=== PATIENT | male | born 1975 | race American Indian/Alaskan Native ===

== ENCOUNTER 2017-01-25 08:59 | Emergency (ER) | payer SELFPAY ==
[2017-01-25 09:12] VITALS: BP 125/86
--- NOTE | 2017-02-01 10:26 | ED Elopement Review ---
ED Pt Elopement review - Call Back decision Pt Call Back Decision: No action required
== END 2017-01-25 19:40 | disposition left against medical advice (07) ==
LOC: ED 08:59
DX: R42 Dizziness and giddiness (principal); Z53.21 Procedure and treatment not carried out due to patient leaving prior to being seen by health care provider
CPT/HCPCS: 93005; 93010

== ENCOUNTER 2017-02-11 15:15 | Emergency (ER) | payer SELFPAY ==
[2017-02-11 15:39] VITALS: BP 136/87
--- NOTE | 2017-02-11 15:59 | Emergency Department Report ---
Entered by MICAELA FLORES, acting as scribe for MAURY TOBIN NP. Chief Complaint: Weakness Stated Complaint: CRAMPS/WEAKNESS Time Seen by Provider: 02/11/17 15:50 - HPI History of Present Illness: 42 y/o male presents to the ED c/o muscle cramps that began this morning. Associated symptoms include weakness. Denies fever and chills. Patient states he has been out walking in the heat today. No alleviating or aggravating symptoms. NKDA. - ROS Review of Systems: +muscle cramps +weakness -fever -chills - Exam Vital Signs: Vital Signs 02/11/17 15:35 Temperature 98.6 F Pulse Rate 95 H Respiratory 18 Rate Blood Pressure 136/87 O2 Sat by Pulse 99 Oximetry Physical Exam: pt looks well, non toxic. gcs 15 no focal weakness noted on exam MSE screening note: Focused history and physical exam performed. Due to findings the following was ordered: labs ED Disposition for MSE Condition: Stable This documentation as recorded by the scribe,MICAELA FLORES,accurately reflects the service I personally performed and the decisions made by ,MAURY TOBIN, SURINDER.
[2017-02-11 16:11] LABS: Basophils % (Auto) 0.7 % (0.0-1.8); Eosinophils % (Auto) 0.8 % (0.0-4.3); Hematocrit 43.1 % (35.5-45.6); Hemoglobin 14.1 gm/dl (11.8-15.2); Mean Corpuscular HGB Conc 33 % (32-34); Mean Corpuscular Hemoglobin 28 pg (28-32); Mean Corpuscular Volume 85 fl (84-94); Platelet Count 210 K/mm3 (140-440); Red Blood Count 5.09 M/mm3 (3.65-5.03); White Blood Count 4.7 K/mm3 (4.5-11.0)
[2017-02-11 16:13] LABS: Bilirubin,Urine NEG (Negative); Blood,Urine NEG (Negative); Ketones,Urine NEG (Negative); Leukocyte Esterase,Urine NEG (Negative); Mucus,Urine FEW /HPF; Nitrite,Urine NEG (Negative); Protein,Urine <15 mg/dL mg/dL (Negative); Urobilinogen,Urine < 2.0 mg/dL (<2.0); WBC,Urine < 1.0 /HPF (0.0-6.0)
[2017-02-11 16:31] LABS: Alanine Aminotransferase 37 units/L (7-56); Albumin 4.4 g/dL (3.9-5); Albumin/Globulin Ratio 1.5 %; Alkaline Phosphatase 60 units/L (35-129); Anion Gap 17 mmol/L; BUN/Creatinine Ratio 10.83; Blood Urea Nitrogen 13 mg/dL (9-20); Carbon Dioxide 26 mmol/L (22-30); Chloride 104.1 mmol/L (98-107); Creatine Kinase 583 units/L (55-170); Glucose 92 mg/dL (75-100); Potassium 3.9 mmol/L (3.6-5.0); Sodium 143 mmol/L (137-145); Total Protein 7.4 g/dL (6.3-8.2)
[2017-02-11] MEDS ORDERED: NACL 0.9% 1000 ML 1,000 ML IV ONE (16:51)
--- NOTE | 2017-02-17 13:19 | ED Elopement Review ---
ED Pt Elopement review - Results review Lab results: Laboratory Tests 02/11/17 02/11/17 02/11/17 15:54 15:54 15:54 WBC 4.7 RBC 5.09 H Hgb 14.1 Hct 43.1 MCV 85 MCH 28 MCHC 33 RDW 13.0 L Plt Count 210 Lymph % (Auto) 32.7 [place] % (Auto) 8.7 H Eos % (Auto) 0.8 Baso % (Auto) 0.7 Lymph # 1.5 [place] # 0.4 Eos # 0.0 Baso # 0.0 Seg Neutrophils % 57.1 Seg Neutrophils # 2.7 Sodium 143 Potassium 3.9 Chloride 104.1 Carbon Dioxide 26 Anion Gap 17 BUN 13 Creatinine 1.2 Estimated GFR > 60 BUN/Creatinine Ratio 10.83 Glucose 92 Calcium 9.0 Total Bilirubin 0.50 AST 25 ALT 37 Alkaline Phosphatase 60 Total Creatine Kinase 583 H Total Protein 7.4 Albumin 4.4 Albumin/Globulin Ratio 1.5 Urine Color Yellow Urine Turbidity Clear Urine pH 6.0 Ur Specific [place] 1.013 Urine Protein <15 mg/dl Urine Glucose (UA) Neg Urine Ketones Neg Urine Blood Neg Urine Nitrite Neg Urine Bilirubin Neg Urine Urobilinogen < 2.0 Ur Leukocyte Esterase Neg Urine WBC (Auto) < 1.0 Urine RBC (Auto) 2.0 Hyaline Casts 1 Urine Mucus Few - Call Back decision Pt Call Back Decision: No action required
== END 2017-02-11 17:22 | disposition left against medical advice (07) ==
LOC: ED 15:15
DX: R53.1 Weakness (principal); Z53.21 Procedure and treatment not carried out due to patient leaving prior to being seen by health care provider
CPT/HCPCS: 36415; 80053; 81001; 82550; 85025

== ENCOUNTER 2020-08-26 18:11 | Emergency (ER) | payer SELFPAY ==
[2020-08-26 18:36] VITALS: BP 123/81
[2020-08-26] MEDS ORDERED: LIDOCAINE VISCOUS 2% 15 ML ORAL LIQD PO ONE ×2 (20:18→23:00)
[2020-08-26] MEDS ORDERED: ALUM-MAG HYDROXIDE-SIMETHICONE 200-200-20MG/5ML ORAL LIQD 30 ML PO ONE ×2 (20:18→23:00)
[2020-08-26] MEDS ORDERED: FAMOTIDINE 20 MG TAB PO ONE ×2 (20:19→23:00)
--- NOTE | 2020-08-26 20:44 | XRay Report ---
CHEST PA AND LATERAL VIEWS INDICATION: Dysphagia- suspect food particles in esophagus. COMPARISON: None. FINDINGS: Support devices: None. Heart: Within normal limits. Lungs/Pleura: No acute pulmonary or pleural findings. IMPRESSION: 1. No acute findings. Signer Name: David Cruz MD Signed: 08/26/2020 8:40 PM Workstation Name: [id number]
[2020-08-26 20:56] LABS: Alanine Aminotransferase 39 units/L (7-56); Albumin 4.2 g/dL (3.9-5); BUN/Creatinine Ratio 9; Blood Urea Nitrogen 11 mg/dL (9-20); Calcium 9.5 mg/dL (8.4-10.2); Hemolysis Index 1
[2020-08-26 21:06] LABS: Basophils % (Auto) 0.5 % (0.0-1.8); Eosinophils % (Auto) 0.5 % (0.0-4.3); Hematocrit 43.1 % (35.5-45.6); Hemoglobin 14.5 gm/dl (11.8-15.2); Lymphocytes # (Auto) 1.8 K/mm3 (1.2-5.4); Mean Corpuscular HGB Conc 34 % (32-34); Mean Corpuscular Volume 86 fl (84-94); Monocytes # (Auto) 0.5 K/mm3 (0.0-0.8); Platelet Count 209 K/mm3 (140-440); Red Blood Count 5.03 M/mm3 (3.65-5.03)
--- NOTE | 2020-08-26 22:11 | Emergency Department Report ---
ED General Adult HPI - General Chief complaint: Abdominal Pain Stated complaint: SORE THROAT Source: patient Mode of arrival: Ambulatory Limitations: No Limitations - History of Present Illness Initial comments: Patient is a 45-year-old -[place] male with a history of GERD, asthma and achalasia who presents to the ED with complaint of acute onset persistent nasal and sinus congestion, sore throat, dysphagia of solid foods and worsening GERD complications and regurgitations for the last 1 week, worse in the last 2 days. Patient states that he has been taking milkshakes and protein shakes with no difficulty but whenever he tries to eat solid foods the pain in the throat is worse with swallowing. Patient states that he has an appointment with [place] access lead for an EGD test on Saturday, August 29, 2020 but could not wait at home because of worsening symptoms. Patient denies headache, fever, chills, nausea and vomiting, chest pain or shortness of breath, abdominal pain, dizziness, headache, hematemesis, hemoptysis or palpitations. MD Complaint: Dysphagia, sore throat -: Sudden Location: mouth, chest Radiation: non-radiation Severity scale (0 -10): 5 Quality: aching, constant Consistency: constant Improves with: none Worsens with: eating Associated Symptoms: denies: denies other symptoms, confusion, cough, diaphoresis, fever/chills, headaches, loss of appetite, malaise, nausea/vomiting, rash, seizure, shortness of breath, syncope, weakness, other Treatments Prior to Arrival: none - Related Data Home Medications Medication Instructions Recorded Confirmed Last Taken Albuterol Sulfate [Albuterol 0.63%] 0.63 mg IH TID PRN 11/25/13 11/25/13 11/25/13 20:00 Budesoni/Formotero 160-4.5(Nf) 2 puff IH BID 11/25/13 11/25/13 11/25/13 20:00 [Symbicort 160-4.5] raNITIdine HCL [Ranitidine 150mg 150 mg PO QPM 11/25/13 11/25/13 11/25/13 20:00 Cap] Previous Rx's Medication Instructions Recorded Last Taken Type Ibuprofen [Motrin] 800 mg PO TID PRN #30 tablet 07/29/13 11/25/13 20:00 Rx Fluticasone Propionate [Flonase] 2 sprays NS DAILY #1 spray.susp 11/26/13 Unknown Rx HYDROcodone/APAP 7.5-325 [[place] 1 each PO Q6HR PRN #20 tablet 11/26/13 Unknown Rx 7.5/325 mg] Loratadine (Nf) [Claritin] 10 mg PO DAILY #30 tablet 11/26/13 Unknown Rx Sulfamethoxazole/Trimethoprim 1 each PO BID #20 tablet 11/26/13 Unknown Rx [Bactrim Ds] predniSONE [Deltasone] 50 mg PO QDAY #5 tab 11/26/13 Unknown Rx Azithromycin [Zithromax Z-CHATA] 250 mg PO DAILY #6 tablet 08/26/20 Unknown Rx Famotidine [Pepcid] 20 mg PO BID #60 tablet 08/26/20 Unknown Rx Lidocaine Viscous 2% 10 ml PO Q6H PRN #120 ml 08/26/20 Unknown Rx Allergies Allergy/AdvReac Type Severity Reaction Status Date / Time shellfish derived Allergy Anaphylaxis Verified 02/11/17 15:35 metoclopramide HCl AdvReac AGITATION Verified 02/11/17 15:35 [From [facility]] ED Review of Systems ROS: Stated complaint: SORE THROAT Other details as noted in HPI Constitutional: denies: chills, fever Eyes: denies: eye pain, eye discharge, vision change ENT: throat pain, congestion, other (Dysphagia of solid foods). denies: ear pain Respiratory: denies: cough, shortness of breath, wheezing Cardiovascular: denies: chest pain, palpitations Endocrine: no symptoms reported Gastrointestinal: denies: abdominal pain, nausea, diarrhea Genitourinary: denies: urgency, dysuria Musculoskeletal: denies: back pain, joint swelling, arthralgia Skin: denies: rash, lesions Neurological: denies: headache, weakness, paresthesias Psychiatric: denies: anxiety, depression Hematological/Lymphatic: denies: easy bleeding, easy bruising ED Past Medical Hx - Past Medical History Previous Medical History?: Yes Hx GERD: Yes Hx Sickle Cell Disease: (trait) Hx Asthma: Yes Additional medical history: vertigo - Surgical History Past Surgical History?: Yes Additional Surgical History: reconstructive on nose - Social History Smoking Status: Never Smoker Substance Use Type: Prescribed - Medications Home Medications: Home Medications Medication Instructions Recorded Confirmed Last Taken Type Ibuprofen [Motrin] 800 mg PO TID PRN #30 tablet 07/29/13 11/25/13 11/25/13 20:00 Rx Albuterol Sulfate [Albuterol 0.63%] 0.63 mg IH TID PRN 11/25/13 11/25/13 11/25/13 20:00 History Budesoni/Formotero 160-4.5(Nf) 2 puff IH BID 11/25/13 11/25/13 11/25/13 20:00 History [Symbicort 160-4.5] raNITIdine HCL [Ranitidine 150mg 150 mg PO QPM 11/25/13 11/25/13 11/25/13 20:00 History Cap] Fluticasone Propionate [Flonase] 2 sprays NS DAILY #1 spray.susp 11/26/13 Unknown Rx HYDROcodone/APAP 7.5-325 [[place] 1 each PO Q6HR PRN #20 tablet 11/26/13 Unknown Rx 7.5/325 mg] Loratadine (Nf) [Claritin] 10 mg PO DAILY #30 tablet 11/26/13 Unknown Rx Sulfamethoxazole/Trimethoprim 1 each PO BID #20 tablet 11/26/13 Unknown Rx [Bactrim Ds] predniSONE [Deltasone] 50 mg PO QDAY #5 tab 11/26/13 Unknown Rx Azithromycin [Zithromax Z-CHATA] 250 mg PO DAILY #6 tablet 08/26/20 Unknown Rx Famotidine [Pepcid] 20 mg PO BID #60 tablet 08/26/20 Unknown Rx Lidocaine Viscous 2% 10 ml PO Q6H PRN #120 ml 08/26/20 Unknown Rx ED Physical Exam - General Limitations: No Limitations General appearance: alert, in no apparent distress - Head Head exam: Present: atraumatic, normocephalic, normal inspection - Eye Eye exam: Present: normal appearance, PERRL, EOMI Pupils: Present: normal accommodation - ENT ENT exam: Present: mucous membranes moist, TM's normal bilaterally, normal external ear exam, other (Mild erythematous oropharynx; midline uvula and no sign of peritonsillar abscess) - Neck Neck exam: Present: normal inspection, full ROM - Respiratory Respiratory exam: Present: normal lung sounds bilaterally. Absent: respiratory distress, wheezes, rales, rhonchi, chest wall tenderness, accessory muscle use, decreased breath sounds, prolonged expiratory - Cardiovascular Cardiovascular Exam: Present: regular rate, normal rhythm, normal heart sounds. Absent: systolic murmur, diastolic murmur, rubs, gallop - GI/Abdominal GI/Abdominal exam: Present: soft, normal bowel sounds. Absent: tenderness, guarding, rebound, hyperactive bowel sounds, hypoactive bowel sounds - Extremities Exam Extremities exam: Present: normal inspection, full ROM, normal capillary refill - Back Exam Back exam: Present: normal inspection, full ROM. Absent: tenderness, CVA tenderness (R), CVA tenderness (L), muscle spasm, paraspinal tenderness, vertebral tenderness - Neurological Exam Neurological exam: Present: alert, oriented X3, CN II-XII intact, normal gait, reflexes normal - Psychiatric Psychiatric exam: Present: normal affect, normal mood - Skin Skin exam: Present: warm, dry, intact, normal color. Absent: rash ED Course Vital Signs 08/26/20 18:31 Temperature 98.2 F Pulse Rate 98 H Respiratory 18 Rate Blood Pressure 123/81 O2 Sat by Pulse 98 Oximetry ED Medical Decision Making - Lab Data Result diagrams: 08/26/20 20:22 08/26/20 20:22 - Radiology Data Radiology results: report reviewed, image reviewed Findings [facility] [address] [place] [address] XRay Report Signed Patient: BRICE LINDER MR#: [id number] : 1975 Acct:[id number] Age/Sex: 45 / M ADM Date: 08/26/20 Loc: ED Attending Dr: Ordering Physician: MANDA CROW Date of Service: 08/26/20 Procedure(s): XR chest routine 2V Accession Number(s): [id number] cc: MANDA CROW Fluoro Time In Minutes: CHEST PA AND LATERAL VIEWS INDICATION: Dysphagia- suspect food particles in esophagus. COMPARISON: None. FINDINGS: Support devices: None. Heart: Within normal limits. Lungs/Pleura: No acute pulmonary or pleural findings. IMPRESSION: 1. No acute findings. Signer Name: David Cruz MD Signed: 08/26/2020 8:40 PM Workstation Name: [id number] Transcribed By: MALIK Dictated By: David Cruz MD Electronically Authenticated By: David Cruz MD Signed Date/Time: 08/26/202039 DD/ 38 TD/TT: - Medical Decision Making This is a 45-year-old -[place] male with a history of GERD, asthma and achalasia who presents to the ED with complaint of acute onset persistent nasal and sinus congestion, sore throat, dysphagia of solid foods and worsening GERD complications and regurgitations for the last 1 week, worse in the last 2 days. Patient states that he has been taking milkshakes and protein shakes with no difficulty but whenever he tries to eat solid foods the pain in the throat is worse with swallowing. Patient states that he has an appointment with [place] access lead for an EGD test on Friday, August 29, 2020 but could not wait at home because of worsening symptoms. In the ED, patient is alert and oriented x3 and is not in any distress. Patient is hemodynamically stable. Lab test results were reviewed and are all nonactionable. Chest x-ray shows no acute cardiopulmonary abnormalities or pneumonitis. Patient was treated in the ED with GI cocktail and was discharged home on prescription of Pepcid and albuterol inhaler. Patient was advised to ensure that he follows up with the [place] access lead for the scheduled EGD procedure. Patient was advised to return to the ED immediately if symptoms get worse. - Differential Diagnosis Pharyngitis; viral syndrome; esophagitis; GERD Critical care attestation.: If time is entered above; I have spent that time in minutes in the direct care of this critically ill patient, excluding procedure time. ED Disposition Clinical Impression: Acute pharyngitis, unspecified Qualifiers: Pharyngitis/tonsillitis etiology: other specified organisms Qualified Code(s): J02.8 - Acute pharyngitis due to other specified organisms GERD (gastroesophageal reflux disease) Qualifiers: Esophagitis presence: esophagitis presence not specified Qualified Code(s): K21.9 - Gastro-esophageal reflux disease without esophagitis Disposition: -01 TO HOME OR SELFCARE Is pt being admited?: No Does the pt Need Aspirin: No Condition: Stable Instructions: Indigestion, [id number], Food Choices for Gastroesophageal Reflux Disease, Adult, Gastroesophageal Reflux Disease, Adult, [id number], Sore Throat, [id number] Additional Instructions: All lab test results were reviewed and are all nonactionable. Chest x-ray shows no acute cardiopulmonary abnormalities or pneumonitis. Therefore take medications as advised, follow-up with your GI physician as scheduled on Saturday, August 29, 2020 for further evaluation. Return to the ED immediately if symptoms get worse. Prescriptions: Lidocaine Viscous 2% 10 ml PO Q6H PRN #120 ml PRN Reason: Sore Throat Famotidine [Pepcid] 20 mg PO BID #60 tablet Azithromycin [Zithromax Z-CHATA] 250 mg PO DAILY #6 tablet Referrals: DIXON LEON MD [Staff Physician] - 7-10 days Time of Disposition: 22:18 Print Language: DOMINICAN
== END 2020-08-26 23:00 | disposition home or self-care (01) ==
LOC: ED 18:11
DX: J02.9 Acute pharyngitis, unspecified (principal); K21.9 Gastro-esophageal reflux disease without esophagitis; J45.909 Unspecified asthma, uncomplicated; Z79.899 Other long term (current) drug therapy; Z88.8 Allergy status to other drugs, medicaments and biological substances; Z91.013 Allergy to seafood; Z98.890 Other specified postprocedural states
CPT/HCPCS: 36415; 71046; 80053; 85025